=== PATIENT | male | born 1950 | race Caucasian/White ===

== ENCOUNTER 2020-03-02 06:16 | Day surgery (SDC) ==
[2020-03-02] MEDS ORDERED: LR 1,000 ML ONE ×2 (06:54→08:10)
[2020-03-02] MEDS ORDERED: KEFZOL 1 GM/D5W 2 GM/100 ML IVPB ONE (06:54)
[2020-03-02 07:00] LABS: HEMATOCRIT 49.7 % (42.0-52.0); HEMOGLOBIN 16.5 g/dL (14.0-18.0); MCH 31.3 PG (27-31); MCHC 33.2 g/dL (33-37); MCV 94.1 FL (81-99); MPV 9.9 FL (7.4-10.4); RBC 5.28 XMIL (4.7-6.1); RDW 12.8 % (11.5-14.5); WBC 6.95 X1000 (4.8-10.8)
[2020-03-02 07:08] LABS: INR 1.04; PROTIME 13.7 Seconds (11.0-16.0)
[2020-03-02 07:09] LABS: PTT 28.8 Seconds (22.3-41.8)
[2020-03-02 07:12] LABS: AGAP 9; BUN 15 mg/dL (8-22); CALCIUM 9.1 mg/dL (8.8-10.2); CHLORIDE 99 mmol/L (98-107); COSMO 272; CREATININE 0.8 mg/dL (0.7-1.2); ESTIMATED GFR > 60; GLUCOSE 119 mg/dL (70-104); POTASSIUM 4.4 mmol/L (3.5-5.1); SODIUM 135 mmol/L (136-145); TCO2 27 mmol/L (25-35)
[2020-03-02] MEDS ORDERED: XYLOCAINE-MPF 2% ONE (07:15)
[2020-03-02] MEDS ORDERED: DIPRIVAN 1% ONE (07:16)
[2020-03-02] MEDS ORDERED: QUELICIN (DOSE) ONE (07:16)
[2020-03-02] MEDS ORDERED: FENTANYL ONE (07:16)
[2020-03-02] MEDS ORDERED: NORCURON ONE (07:16)
--- NOTE | 2020-03-02 07:29 | HISTORY AND PHYSICAL ---
HISTORY OF PRESENT ILLNESS: A 69-year-old male with history of left renal mass, who was seen by Dr. Barragan in [place]. After Dr. Barragan retired, I took over patient's care. He went to see his primary care doctor, Dr. De Oliveira, and had abdominal ultrasound on 12/30/2019 revealing a 2.8 cm nodule in the lower pole of the left kidney. This was followed up by CT scan in [facility] which confirmed a 2.9 x 2.6 cm solid enhancing renal mass. The patient was counseled on the strong possibility of it being a malignancy and feels strongly about having it removed. He has a remote history of smoking. He denies gross hematuria or dysuria. PAST MEDICAL HISTORY: BPH, diabetes mellitus, coronary artery disease, hyperlipidemia, hypertension, neuropathy, erectile dysfunction. PAST SURGICAL HISTORY: Tonsillectomy, laparoscopic fundoplication, TURP. HOME MEDICATIONS: Omeprazole, metformin, lisinopril, gabapentin, atorvastatin, atenolol, calcium, multivitamin. ALLERGIES: No known drug allergies. FAMILY HISTORY: Positive for coronary artery disease, hypertension and COPD. SOCIAL HISTORY: Former smoker. Denies alcohol or illicit drug use. PHYSICAL EXAMINATION: GENERAL: No acute distress. HEENT: Normocephalic, atraumatic. CARDIOVASCULAR: Regular rate and rhythm. PULMONARY: Bilateral breath sounds. ABDOMEN: Scaphoid. Nontender to palpation. ASSESSMENT: A 69-year-old male with left growing enhancing solid renal mass, which is likely renal cell carcinoma. The patient was counseled on active surveillance versus percutaneous cryoablation versus robotic partial nephrectomy. Given the fact that in 3 years the mass has nearly doubled in size, he feels strongly about intervention with robotic surgery. Risks of left robotic-assisted laparoscopic partial nephrectomy include, but not limited to bleeding, infection, injury to the adjacent structures such as spleen, colon, or major blood vessels, inability to remove the entire mass and need for additional interventions, need to convert to open approach, and need to convert to complete nephrectomy were explained. He voiced understanding and wants to proceed. PLAN: Left robotic-assisted laparoscopic partial nephrectomy. cc: Sergey Gill MD
[2020-03-02] MEDS ORDERED: REGLAN ONE (08:06)
[2020-03-02] MEDS ORDERED: TENORMIN ONE (08:06)
[2020-03-02] MEDS ORDERED: PEPCID ONE (08:06)
[2020-03-02] MEDS ORDERED: MARCAINE 0.25% PF/EPI 1:200,000 ONE (08:10)
[2020-03-02] MEDS ORDERED: ZOFRAN ONE (08:22)
[2020-03-02] MEDS ORDERED: DECADRON ONE (08:22)
[2020-03-02] MEDS ORDERED: ROBINUL ONE (09:01)
[2020-03-02] MEDS ORDERED: NEOSTIGMINE ONE (09:02)
[2020-03-02] MEDS ORDERED: OFIRMEV 1000 MG/ISOTONIC SOLN 1,000 MG/100 ML BOTTLE ONE (09:04)
[2020-03-02] MEDS ORDERED: MANNITOL ONE ×2 (09:05→09:40)
[2020-03-02] MEDS ORDERED: EPHEDRINE ONE (09:26)
[2020-03-02] MEDS: DILAUDID ONE ×3 (11:05→19:34)
[2020-03-02] MEDS: NS 1,000 ML ONE ×2 (11:20→19:34)
[2020-03-02] MEDS ORDERED: MORPHINE IV PRN (11:32)
[2020-03-02] MEDS ORDERED: NORCO-10 PO PRN (11:45)
[2020-03-02] MEDS ORDERED: NORCO-7.5 PO PRN (11:45)
[2020-03-02] MEDS ORDERED: ZOFRAN IV PRN (11:45)
[2020-03-02] MEDS ORDERED: SODIUM CHLORIDE 0.9% INJ PRN (11:45)
[2020-03-02] MEDS ORDERED: PHENERGAN PO PRN (11:45)
[2020-03-02] MEDS ORDERED: D50W SYRINGE IV PRN (11:45)
[2020-03-02] MEDS ORDERED: DITROPAN PO PRN (11:45)
[2020-03-02] MEDS ORDERED: PHENERGAN IV PRN (11:45)
[2020-03-02] MEDS ORDERED: NORCO-5 PO PRN (11:45)
[2020-03-02] MEDS ORDERED: LABETALOL IV PRN (11:45)
[2020-03-02] MEDS ORDERED: PHENERGAN PR PRN (11:45)
[2020-03-02] MEDS ORDERED: DILAUDID IV PRN (11:45)
[2020-03-02] MEDS: NS 1,000 ML IV SCH (11:50)
[2020-03-02] MEDS ORDERED: TYLENOL PO PRN (15:00)
[2020-03-02] MEDS: HUMULIN R SUBQ SCH ×2 (16:49→21:03)
[2020-03-02] MEDS: KEFZOL 2 GM/D5W 2 GM/50 ML IVPB IV SCH (16:49)
[2020-03-02] MEDS: NEURONTIN PO SCH (18:30)
--- NOTE | 2020-03-02 18:46 | OPERATIVE NOTE ---
PROCEDURE DATE: 03/02/2020 SURGEON: Sergey Gill MD PREOPERATIVE DIAGNOSIS: Left solid renal mass. POSTOPERATIVE DIAGNOSIS: Left solid renal mass. PROCEDURE: Left robotic-assisted laparoscopic partial nephrectomy. INDICATIONS: A 69-year-old male with a history of left renal mass that originally was surveyed because it was under 2 cm. It has grown over 3-1/2 years to [address] scan and hence. He desires definitive intervention. He was counseled on biopsy versus percutaneous ablation, versus robotic partial nephrectomy and wants to proceed with the latter. FINDINGS: Fifteen-minute warm ischemia time. The tumor was fairly exophytic. DESCRIPTION OF PROCEDURE: After obtaining informed consent, the patient was brought to the operating room. Perioperative antibiotics and general endotracheal anesthesia were administered. He was placed in modified flank position with the left side up. His upper and lower extremities were padded. A 16-[place] Butler catheter was introduced. He was prepped and draped in sterile fashion. Veress needle connected to saline-filled syringe was introduced into his umbilicus, and we confirmed positive drop test followed by aspiration of fluid within the syringe. The pneumoperitoneal pressure was increased to 15 mmHg. The trocar sites were marked out in standard partial nephrectomy fashion. Ten mL of 0.25% Marcaine with epinephrine were used to anesthetize the trocar sites locally. Bovie electrocautery was used to incise the skin. A 12 mm trocar was then introduced, followed by insertion of a robotic camera. His peritoneal cavity was examined and he did not have any significant adhesions. I was able to place the rest of the trocar under direct vision. He was placed in a more exaggerated flank position and the robot was docked. I began by incising the white line of Toldt and mobilizing the ascending colon all the way to the splenic flexure. Once that was done, Gerota fascia was incised and dissection extended through perirenal fat until the renal capsule was seen. We then dissected circumferentially, and then in the interpolar area on the posterior surface of the kidney there was a visible mass. I dissected several centimeter margins around the mass, which allowed us to close the defect in the near future. We then lifted the kidney anteriorly and I was able to identify the lower pole of the kidney, followed by identification of the ureter and the gonadal vein. Dissection extended along the gonadal vein until the left renal vein came into view. I dissected around circumferentially and was able to place a Vesseloop around it. The left renal artery was directly behind the renal vein. I was able to place a Vesseloop around that as well. Following that, 12.5 g of mannitol were administered intravenously. We used bulldog clamps to clamp the renal artery, followed by clamping of the renal vein. Cold scissors were then used to excise the mass in its entirety. V- Loc 3-0 suture was used to oversew the deeper bleeders. V-Loc 0 suture x4 were used as renorrhaphy sutures. The defect was tightened up with Hem-O-Gabrielle clips after the renal orifice sutures were placed. The bulldogs were taken off the vein and then the artery. The wound was inspected for bleeding, including decreasing pneumoperitoneal pressure to 3 mmHg, and there was no bleeding whatsoever. Please note that prior to clamping of the vessels, we used intraoperative [place] ultrasound via the fourth arm, introducing the probe and confirming the appearance of the mass, as well as taking its measurements. The mass was placed into an EndoCatch bag. The robot was undocked. The infraumbilical incision was extended. The mass was delivered in one piece. The wounds were copiously irrigated. PDS #1 suture was used to close the fascia in a running style infraumbilically. Vicryl 0 suture was used to close the camera trocar in a [id number] fashion; 4-0 Monocryl was used for subcuticular closure, followed by application of Covidien adhesive agent. Butler catheter was removed. He was extubated and taken to PACU for further recovery. ESTIMATED BLOOD LOSS: 100 mL SPECIMENS: Labeled as left renal mass. DRAINS: None. COMPLICATIONS: None. DISPOSITION: To PACU and subsequently the floor for observation. cc: Sergey Gill MD
[2020-03-02] MEDS ORDERED: TENORMIN PO SCH (21:00)
[2020-03-02] MEDS ORDERED: CALTRATE 600 + D PO SCH (21:00)
[2020-03-02] MEDS ORDERED: LIPITOR PO SCH (21:00)
[2020-03-02] MEDS: COLACE PO SCH (21:05)
[2020-03-02] MEDS: VITAMIN E PO SCH (21:05)
[2020-03-03] MEDS: KEFZOL 2 GM/D5W 2 GM/50 ML IVPB IV SCH ×2 (00:38→08:33)
[2020-03-03] MEDS: NS 1,000 ML IV SCH (00:43)
[2020-03-03] MEDS: HUMULIN R SUBQ SCH ×2 (07:23→11:04)
[2020-03-03 07:35] VITALS: BP 125/74
[2020-03-03] MEDS: NEURONTIN PO SCH (08:33)
[2020-03-03] MEDS: COLACE PO SCH (08:34)
[2020-03-03] MEDS: VITAMIN E PO SCH (08:34)
[2020-03-03] MEDS ORDERED: PRINIVIL PO SCH (09:00)
[2020-03-03] MEDS ORDERED: THERA M PLUS PO SCH (09:00)
[2020-03-03] MEDS ORDERED: GLUCOPHAGE PO SCH (09:00)
== END 2020-03-03 11:21 | disposition other institution (70) ==
LOC: OR 06:16 → 4N 06:16 → OR 03-03 11:21
PROVIDERS: ATTEND Urology